=== PATIENT | female | born 1955 | race Native Hawaiian/Other Pacific Islander ===

== ENCOUNTER 2021-09-21 12:57 | Outpatient (CLI) | payer OTHER, BC | END 2021-09-21 19:00 | disposition home or self-care (01) | LOC: MAMMO 12:57 | PROVIDERS: ATTEND Physician Assistant | DX: Z12.31 Encounter for screening mammogram for malignant neoplasm of breast (principal) ==

== ENCOUNTER 2021-12-26 15:50 | Emergency (ER) | payer OTHER, BC ==
[~2021-12-26] VITALS: Ht 165.1 cm; Wt 113.4 kg
[2021-12-26 16:00] VITALS: BP 141/69; TEMP 98.2
== END 2021-12-26 18:55 | disposition home or self-care (01) ==
LOC: ED 15:50
PROC: 2W3RX1Z Immobilization of Left Lower Leg using Splint (ICD-10-PCS; principal; 2021-12-26)
PROC: 2W3CX1Z Immobilization of Right Lower Arm using Splint (ICD-10-PCS; 2021-12-26)
DX: S92.002A Unspecified fracture of left calcaneus, initial encounter for closed fracture (principal); S66.811A Strain of other specified muscles, fascia and tendons at wrist and hand level, right hand, initial encounter; W10.8XXA Fall (on) (from) other stairs and steps, initial encounter; Y92.89 Other specified places as the place of occurrence of the external cause
CPT/HCPCS: 99283